=== PATIENT | female | born 1980 | race Caucasian/White ===

== ENCOUNTER 2018-09-12 20:20 | Emergency (ER) | payer SELFPAY ==
[~2018-09-12] VITALS: Ht 167.6 cm; Wt 49.9 kg
[2018-09-12 20:27] VITALS: BP 117/75
--- NOTE | 2018-09-12 20:31 | NUR ---
PT AMBULATED TO BED 2. PROVIDED WITH URINE CUP.
--- NOTE | 2018-09-12 20:40 | NUR ---
37 YO F BIB SELF PRESENTS TO ED C/O 12/25 RIGHT LOWER ABD PAIN ACCOMPANIED BY N/V SINCE 0100 THIS AM. PT STATES SHE WENT TO URGENT CARE AROUND 0900 AND AN US WAS PERFORMED. SHE WENT TO WORK AFTERWARDS AND THEY CALLED TO TELL HER TO GO TO ER FOR F/U FOR POSSIBLE APPENDICITIS. PT DENIES TAKING ANY MEDICATION FOR PAIN. -- PT IS CALM, COOPERATIVE, ANSWERS QUESTIONS APPROPRIATELY. -- SKIN PINK, WARM, DRY. BREATHING EVEN, UNLABORED. -- LAST BM: THIS MORNING. SOFT/BROWN. DENIES CONSTIPATION/DIARRHEA. BOWEL SOUNDS ACTIVE TO ALL QUADRANTS. ABD IS FLAT, SOFT, TENDER TO TOUCH. PAIN INCREASES WHILE PT IS SUPINE. PMH-- BOWEL RESECTION, 08/25/18, HYSTERECTOMY, 2016. RX-- DENIES.
[2018-09-12] MEDS ORDERED: MORPHINE SULFATE 4 MG/ML SYR IVP ONE ×3 (20:45→23:05)
[2018-09-12] MEDS ORDERED: diphenhydrAMINE 50 MG/ML VIAL IVP ONE ×2 (20:45→22:45)
[2018-09-12] MEDS ORDERED: ONDANSETRON 4 MG/2 ML VIAL IVP ONE (20:45)
[2018-09-12] MEDS ORDERED: NACL 0.9% 1,000 ML IV SCH (20:45)
--- NOTE | 2018-09-12 20:50 | NUR ---
DR. OCASIO EVALUATING AT BEDSIDE. PT STATES SHE IS ALLERGIC TO IV CONTRAST AND GETS A RASH TO HER CHEST. PT ADDS THAT SHE HAS BEEN PREMEDICATED WITH IVP BENADRYL BEFOREHAND AND THIS IS EFFECTIVE FOR MANAGING ALLERGIC REACTION. DR. OCASIO AWARE. ORDERS RECEIVED.
[2018-09-12 21:05] LABS: APPEARANCE,URINE CLEAR (CLEAR); BILIRUBIN,URINE NEGATIVE (NEGATIVE); BLOOD, URINE 1+ (NEGATIVE); COLOR,URINE YELLOW (YELLOW); LEUKOCYTE ESTERASE ,URINE TRACE (NEGATIVE); NITRITE, URINE NEGATIVE (NEGATIVE); UGLUCOSE NEGATIVE (NEGATIVE)
[2018-09-12 21:07] LABS: BASOPHILS % (AUTO) 0.5 % (0.0-2.0); EOSINOPHILS # (AUTO) 0.1 K/uL (0-0.4); HEMATOCRIT 31.7 % (36-48); HEMOGLOBIN 10.5 g/dL (12.0-16.0); LYMPHOCYTES # (AUTO) 0.9 K/uL (2.5-16.5); LYMPHOCYTES % (AUTO) 29.6 % (20.5-51.1); MEAN CORPUSCULAR HEMOGLOBIN 27 pg (27-31); MEAN CORPUSCULAR HGB CONC 33 g/dL (33-37); MEAN CORPUSCULAR VOLUME 82.6 fL (80-94); MONOCYTES # (AUTO) 0.2 K/uL (0.8-1.0); MONOCYTES % (AUTO) 7.1 % (1.7-9.3); NEUTROPHILS # (AUTO) 1.8 K/uL (1.8-7.7); NEUTROPHILS % (AUTO) 58.8 % (42.2-75.2); PLATELET COUNT (AUTO) 339 K/uL (140-450); RED BLOOD CELL COUNT(AUTO) 3.84 MIL/uL (4.20-5.40); RED CELL DISTRIBUTION WIDTH 21.6 % (11.6-13.7); WHITE BLOOD COUNT (AUTO) 3.1 K/uL (4.8-10.8)
[2018-09-12 21:24] LABS: ALBUMIN 3.7 g/dL (3.4-5.0); ANION GAP 13.1 (8-16); CARBON DIOXIDE 26.5 mmol/L (21-32); CREATININE 0.6 mg/dL (0.6-1.3); TOTAL BILIRUBIN 0.4 mg/dL (0.0-1.0)
[2018-09-12 21:24] LABS: WBC,URINE 0-5 /HPF (0-5)
[2018-09-12 21:26] LABS: POTASSIUM 2.6 mmol/L (3.5-5.1)
[2018-09-12] MEDS ORDERED: POTASSIUM CHLORIDE 10 MEQ TABER PO ONE (21:40)
--- NOTE | 2018-09-12 21:40 | NUR ---
PT RECEIVED 50 MG BENADRYL IVP FOR ALLERGIC REACTION TO IV CONTRAST. CT NOTIFIED.
--- NOTE | 2018-09-12 21:48 | NUR ---
PT TAKEN TO CT AT THIS TIME
--- NOTE | 2018-09-12 21:58 | NUR ---
PT RETURNED FROM CT
--- NOTE | 2018-09-12 22:10 | NUR ---
PT REPORTS FEELING MILDLY ITCHY BUT NO RASH NOTED.
--- NOTE | 2018-09-12 22:44 | NUR ---
CT RESULT: Impression: 1. Postsurgical changes from recent midline incision with fluid diffusely throughout the large and small bowel. There is mild thickening of the wall of the colon with slight adjacent fat stranding. This is likely outside sales representative of ileus with possible mild colitis. There is no evidence for a bowel obstruction or perforation. 2. The remainder the examination is unremarkable. Automatic exposure control was used as a dose lowering technique.
--- NOTE | 2018-09-12 22:50 | NUR ---
PT REPORTS SHE STILL FEELS ITCHY. DR. OCASIO NOTIFIED. RECEIVED ORDERS FOR 50 MG BENADRYL IVP.
--- NOTE | 2018-09-12 23:00 | NUR ---
PT HAS RECEIVED 8 MG MORPHINE IVP. REPORTS 10/[address] OCASIO NOTIFIED. NEW ORDERS RECEIVED FOR 4 MG MORPHINE IVP AND RX FOR NORCO. PT STATES SHE HAS RIDE HOME.
[2018-09-12 23:15] VITALS: BP 124/92
--- NOTE | 2018-09-12 23:15 | NUR ---
Patient discharged with v/s stable. Written and verbal after care instructions given and explained. Patient alert, oriented and verbalized understanding of instructions. Pt states pain is slowly starting to go down and reports that itching and N/V has gone away. Ambulatory with steady gait. All questions addressed prior to discharge. ID band removed. Patient advised to follow up with PMD. Rx of Prednisone, Zofran, and [place] given. Patient educated on indication of medication including possible reaction and side effects. Opportunity to ask questions provided and answered.
== END 2018-09-12 23:15 | disposition home or self-care (01) ==
LOC: MED 20:20
DX: R10.31 Right lower quadrant pain (principal); R50.9 Fever, unspecified; R11.2 Nausea with vomiting, unspecified; Z88.6 Allergy status to analgesic agent; Z90.710 Acquired absence of both cervix and uterus
CPT/HCPCS: 36415; 74177; 80053; 81001; 81025; 83690; 85025; 96365; 96375; 96376; 99284; J1200; J2270; J2405; J7030; Q9967

== ENCOUNTER 2018-09-13 10:36 | Emergency (ER) | payer MEDICAID ==
[~2018-09-13] VITALS: Ht 167.6 cm; Wt 35.9 kg
[2018-09-13 10:45] VITALS: BP 111/77
--- NOTE | 2018-09-13 10:51 | NUR ---
PATIENT PRESENTS TO ED WITH C/O RLQ PAIN, PAIN 9/10. PT SEEN HERE YESTERDAY FOR SAME. RX GIVEN, PT NOT ABLE TO FEED RESEARCH AIDE MEDS UNTIL THIS AFTERNOON. VSS; PATIENT POSITIONED FOR COMFORT; HOB ELEVATED; BEDRAILS UP X2; BED DOWN. ER MD MADE AWARE OF PT STATUS.
--- NOTE | 2018-09-13 10:58 | NUR ---
Patient being evaluated by physician at bedside.
[2018-09-13] MEDS ORDERED: NACL 0.9% 1,000 ML IV SCH ×2 (11:03→12:40)
[2018-09-13] MEDS ORDERED: ONDANSETRON 4 MG/2 ML VIAL IVP ONE (11:05)
[2018-09-13] MEDS ORDERED: MORPHINE SULFATE 4 MG/ML SYR IVP ONE (11:05)
[2018-09-13 11:53] LABS: BASOPHILS % (AUTO) 0.6 % (0.0-2.0); EOSINOPHILS # (AUTO) 0.3 K/uL (0-0.4); EOSINOPHILS % (AUTO) 9.9 % (0.0-4.0); HEMATOCRIT 29.2 % (36-48); HEMOGLOBIN 9.6 g/dL (12.0-16.0); LYMPHOCYTES # (AUTO) 0.8 K/uL (2.5-16.5); LYMPHOCYTES % (AUTO) 25.3 % (20.5-51.1); MEAN CORPUSCULAR HEMOGLOBIN 28 pg (27-31); MEAN CORPUSCULAR HGB CONC 33 g/dL (33-37); MEAN CORPUSCULAR VOLUME 83.5 fL (80-94); MONOCYTES # (AUTO) 0.3 K/uL (0.8-1.0); MONOCYTES % (AUTO) 9.1 % (1.7-9.3); NEUTROPHILS # (AUTO) 1.8 K/uL (1.8-7.7); NEUTROPHILS % (AUTO) 55.1 % (42.2-75.2); PLATELET COUNT (AUTO) 277 K/uL (140-450); RED BLOOD CELL COUNT(AUTO) 3.49 MIL/uL (4.20-5.40); RED CELL DISTRIBUTION WIDTH 21.5 % (11.6-13.7); WHITE BLOOD COUNT (AUTO) 3.2 K/uL (4.8-10.8)
[2018-09-13 11:53] LABS: APPEARANCE,URINE CLEAR (CLEAR); BILIRUBIN,URINE NEGATIVE (NEGATIVE); BLOOD, URINE TRACE-L (NEGATIVE); COLOR,URINE YELLOW (YELLOW); LEUKOCYTE ESTERASE ,URINE TRACE (NEGATIVE); NITRITE, URINE NEGATIVE (NEGATIVE); UGLUCOSE NEGATIVE (NEGATIVE)
[2018-09-13 12:00] LABS: RBC,URINE 0-5 /HPF (0-5)
[2018-09-13 12:07] LABS: ALBUMIN 3.4 g/dL (3.4-5.0); ANION GAP 13.2 (8-16); CARBON DIOXIDE 27.3 mmol/L (21-32); CREATININE 0.6 mg/dL (0.6-1.3); TOTAL BILIRUBIN 0.4 mg/dL (0.0-1.0)
[2018-09-13] MEDS ORDERED: diphenhydrAMINE 50 MG/ML VIAL IVP ONE (12:10)
[2018-09-13 12:13] LABS: POTASSIUM 2.5 mmol/L (3.5-5.1)
--- NOTE | 2018-09-13 12:13 | NUR ---
CRITICAL LAB REPORT RECEIVED FROM [employer] REPRODUCTIVE ENDOCRINOLOGIST. POTASSIUM 2.5; LACTIC ACID: 3.1. DR PETE NOTIFIED.
--- NOTE | 2018-09-13 12:14 | NUR ---
REDNESS AND HIVE NOTED TO LEFT HAND, BENENDYL GIVEN. PT DENIES PAIN OR ITCHINESS.
[2018-09-13] MEDS ORDERED: NACL 0.9% 1,000 ML IV ONE (12:15)
[2018-09-13] MEDS ORDERED: KCL 20 MEQ/WATER INJ PREMIX 100 ML IV ONE (12:15)
[2018-09-13] MEDS ORDERED: MAG SULF 2000 MG/WATER PREMIX 50 ML IV ONE (12:15)
[2018-09-13] MEDS ORDERED: MORPHINE SULFATE 2 MG/ML SYR IVP PRN (12:40)
[2018-09-13] MEDS ORDERED: HYDROcodone/APAP 5/325 MG 1 TAB TAB PO PRN (12:40)
[2018-09-13] MEDS ORDERED: ZOLPIDEM 5 MG TAB PO PRN (12:40)
[2018-09-13] MEDS ORDERED: DOCUSATE SODIUM 100 MG GELCAP PO PRN (12:40)
[2018-09-13] MEDS ORDERED: ACETAMINOPHEN 325 MG TAB PO PRN (12:40)
[2018-09-13] MEDS ORDERED: ONDANSETRON 4 MG/2 ML VIAL IM/IVP PRN (12:40)
[2018-09-13] MEDS ORDERED: LORazepam 2 MG/ML VIAL IM/IVP PRN (12:40)
[2018-09-13] MEDS ORDERED: diphenhydrAMINE 50 MG/ML VIAL IM ONE (12:50)
[2018-09-13] MEDS ORDERED: POTASSIUM CHLORIDE 20% 40 MEQ/15 ML UDC PO SCH (13:30)
[2018-09-13 13:36] VITALS: BP 101/62
--- NOTE | 2018-09-13 13:36 | NUR ---
Patient does not wish to proceed with medical care recommended by dr flores. Patient given information related to possible complications, up to and including , which could occur as a result of leaving hospital at this time. Patient verbalizes understanding of risks involved leaving against medical advice. Patient has signed AMA form.
[2018-09-13 14:07] LABS: BARBITURATE, URINE NEG. ng/ml (NEG <=200); BENZODIAZEPINE, URINE NEG. ng/mL (NEG <=200); CANNABINOID, URINE NEG. ng/mL (NEG <=50); COCAINE, URINE NEG. ng/mL (NEG <=300); OPIATE, URINE POS. ng/mL (NEG <=2000); PHENCYCLIDINE SCREEN,URINE NEG. ng/mL (NEG <=25)
[2018-09-13] MEDS ORDERED: PIPER/TAZO 3.375GM/D5W PREMIX 50 ML IV SCH (21:00)
[2018-09-14] MEDS ORDERED: LACTOBACILLUS RHAMNOSUS GG 1 EACH CAP PO SCH (09:00)
== END 2018-09-13 13:36 | disposition left against medical advice (07) ==
LOC: MED 10:36 → UNDOADMIN 12:40 → MTU 12:40 → MED 13:36
DX: K52.9 Noninfective gastroenteritis and colitis, unspecified (principal); E87.6 Hypokalemia; D64.9 Anemia, unspecified; K56.7 Ileus, unspecified; D72.819 Decreased white blood cell count, unspecified; Z98.890 Other specified postprocedural states; Z90.710 Acquired absence of both cervix and uterus; Z88.6 Allergy status to analgesic agent; Z88.8 Allergy status to other drugs, medicaments and biological substances
CPT/HCPCS: 36415; 71045; 80053; 80305; 81001; 81025; 82150; 83605; 83690; 85025; 87040; 87086; 93005; 96361; 96365; 96375; 99291; J1200; J2270; J2405; J3475; J3480; J7030; Q0092; 99284; J2543

== ENCOUNTER 2018-09-23 20:16 | Inpatient (IN) | payer MEDICAID ==
[~2018-09-23] VITALS: Ht 167.6 cm; Wt 34.9 kg
[2018-09-23 20:17] VITALS: BP 101/69
--- NOTE | 2018-09-23 20:27 | NUR ---
PT AMBULATED TO BED #1
--- NOTE | 2018-09-23 20:46 | NUR ---
PT TO ED WITH C/O GENERALIZED ABD PAIN X 2 DAYS WITH N/V/C. ABD IS FLAT, TENDER WITH HYPOACTIVE BOWEL SOUNDS X 4 QUADRANTS. PT REPORTS HX OF SMALL BOWEL OBSTRUCTIONS, AND REPORTS SMILIAR S/S PRIOR EPISODES. PT PLACED INTO BED, PENDING MD GOMES.
[2018-09-23] MEDS ORDERED: NACL 0.9% 1,000 ML IV ONE (20:55)
[2018-09-23] MEDS ORDERED: METOCLOPRAMIDE 10 MG/2 ML INJ VIAL IVP ONE (20:55)
[2018-09-23] MEDS ORDERED: MORPHINE SULFATE 4 MG/ML SYR IVP ONE (20:55)
[2018-09-23 21:17] LABS: BASOPHILS % (AUTO) 0.4 % (0.0-2.0); EOSINOPHILS # (AUTO) 0.1 K/uL (0-0.4); EOSINOPHILS % (AUTO) 4.7 % (0.0-4.0); HEMATOCRIT 34.4 % (36-48); HEMOGLOBIN 11.2 g/dL (12.0-16.0); LYMPHOCYTES # (AUTO) 0.9 K/uL (2.5-16.5); LYMPHOCYTES % (AUTO) 36.4 % (20.5-51.1); MEAN CORPUSCULAR HEMOGLOBIN 28 pg (27-31); MEAN CORPUSCULAR HGB CONC 33 g/dL (33-37); MEAN CORPUSCULAR VOLUME 84.9 fL (80-94); MONOCYTES # (AUTO) 0.3 K/uL (0.8-1.0); MONOCYTES % (AUTO) 13.3 % (1.7-9.3); NEUTROPHILS # (AUTO) 1.1 K/uL (1.8-7.7); NEUTROPHILS % (AUTO) 45.2 % (42.2-75.2); PLATELET COUNT (AUTO) 350 K/uL (140-450); RED BLOOD CELL COUNT(AUTO) 4.05 MIL/uL (4.20-5.40); RED CELL DISTRIBUTION WIDTH 20.8 % (11.6-13.7); WHITE BLOOD COUNT (AUTO) 2.4 K/uL (4.8-10.8)
[2018-09-23 21:19] LABS: APPEARANCE,URINE HAZY (CLEAR); BILIRUBIN,URINE NEGATIVE (NEGATIVE); BLOOD, URINE TRACE-I (NEGATIVE); COLOR,URINE YELLOW (YELLOW); LEUKOCYTE ESTERASE ,URINE 1+ (NEGATIVE); NITRITE, URINE NEGATIVE (NEGATIVE); UGLUCOSE NEGATIVE (NEGATIVE)
[2018-09-23 21:21] LABS: RBC,URINE 0-5 /HPF (0-5); WBC,URINE 20-60 /HPF (0-5)
--- NOTE | 2018-09-23 21:31 | NUR ---
PT DECLINED JAMEEL METZ MD AWARE.
[2018-09-23 21:34] LABS: ALBUMIN 3.6 g/dL (3.4-5.0); ANION GAP 20.2 (8-16); CARBON DIOXIDE 17.2 mmol/L (21-32); CREATININE 0.6 mg/dL (0.6-1.3); TOTAL BILIRUBIN 0.4 mg/dL (0.0-1.0)
[2018-09-23 21:37] LABS: POTASSIUM 2.4 mmol/L (3.5-5.1)
[2018-09-23] MEDS ORDERED: POTASSIUM CHLORIDE 10 MEQ TABER PO ONE (21:50)
[2018-09-23] MEDS ORDERED: diphenhydrAMINE 50 MG/ML VIAL IVP ONE (22:15)
[2018-09-23] MEDS ORDERED: NACL 0.9% 1,000 ML IV SCH (22:16)
[2018-09-23] MEDS ORDERED: ACETAMINOPHEN 325 MG TAB PO PRN (22:20)
[2018-09-23] MEDS ORDERED: HYDROcodone/APAP 7.5/325 MG 1 TAB PO PRN (22:20)
[2018-09-23] MEDS ORDERED: MORPHINE SULFATE 2 MG/ML SYR IVP PRN (22:20)
[2018-09-23] MEDS ORDERED: DOCUSATE SODIUM 100 MG GELCAP PO PRN (22:20)
[2018-09-23] MEDS ORDERED: fentaNYL 0.05 MG/ML VIAL IVP ONE (22:30)
[2018-09-23] MEDS ORDERED: METOCLOPRAMIDE 10 MG/2 ML INJ VIAL IVP PRN (22:40)
--- NOTE | 2018-09-23 22:50 | NUR ---
RECEIVED PT FROM ER NURSE. PT AWAKE, ALERT AND ORIENTED X 4. ABLE TO VERBALIZE NEEDS. PT ABLE TO AMBULATE FROM BED TO GURNEY, STEADY GAIT. RIGHT A/C 20 G INTACT. PT ORIENTED TO ROOM, SAFETY MEASURES IN PLACE. CALL LIGHT WITHIN REACH.
--- NOTE | 2018-09-23 22:50 | NUR ---
Patient will be admitted to care of DR PALMER. Admited to TELE. Will go to room 120-B. Belongings list completed. Report to BRANTPADMINI.
[2018-09-23] MEDS ORDERED: ONDANSETRON 4 MG/2 ML VIAL IVP PRN (23:05)
[2018-09-23] MEDS ORDERED: POTASSIUM CHLORIDE 40 MEQ, LIDOCAINE MPF 1% - 5 mL VIAL 25 MG in NACL 0.9% 250 ML IV ONE (23:05)
[2018-09-23] MEDS ORDERED: DEXT 5% /NACL 0.9% 1,000 ML IV SCH (23:05)
[2018-09-23 23:18] LABS: FREE T4 (FREE THYROXINE) 0.65 ng/dL (0.76-1.46); MAGNESIUM 1.1 mg/dL (1.8-2.4); PHOSPHORUS 3.4 mg/dL (2.5-4.9)
[2018-09-23 23:19] LABS: THYROID STIMULATING HORMONE 0.75 uIU/mL (0.34-3.74)
[2018-09-23 23:30] LABS: BARBITURATE, URINE NEG. ng/ml (NEG <=200); BENZODIAZEPINE, URINE NEG. ng/mL (NEG <=200); CANNABINOID, URINE NEG. ng/mL (NEG <=50); COCAINE, URINE NEG. ng/mL (NEG <=300); OPIATE, URINE NEG. ng/mL (NEG <=2000); PHENCYCLIDINE SCREEN,URINE NEG. ng/mL (NEG <=25)
[2018-09-23] MEDS ORDERED: NACL 0.9% 500 ML IV ONE (23:30)
[2018-09-23] MEDS: diphenhydrAMINE 50 MG/ML VIAL IVP PRN (23:37)
[2018-09-24] VITALS: BP 113/79
[2018-09-24] MEDS ORDERED: MAG SULF 2000 MG/WATER PREMIX 100 ML IV ONE
[2018-09-24] MEDS ORDERED: MORPHINE SULFATE 2 MG/ML SYR IVP PRN ×2 (00:10→08:10)
[2018-09-24] MEDS ORDERED: HYDROmorphone 1 MG/ML AMP IVP PRN (00:10)
--- NOTE | 2018-09-24 00:11 | NUR ---
PT HAD SMALL EMESIS, ZOFRAN GIVEN FOR NAUSEA.
[2018-09-24] MEDS: LORazepam 2 MG/ML VIAL IVP PRN ×3 (01:11→16:50)
--- NOTE | 2018-09-24 01:13 | NUR ---
DILAUDID GIVEN FOR BREAK THROUGH PAIN.
[2018-09-24] MEDS: KCL 20 MEQ/WATER INJ PREMIX 100 ML IV SCH ×2 (03:14→06:53)
[2018-09-24 04:00] VITALS: BP 92/59
--- NOTE | 2018-09-24 04:01 | NUR ---
PAIN MEDICATION GIVEN PER ORDERS.
--- NOTE | 2018-09-24 05:05 | NUR ---
ROUNDED ON PT. PT SLEEPING, NO VISIBLE SIGNS OF DISTRESS. BREATHING EQUAL AND UNLABORED. SAFETY MEASURES IN PLACE. CALL LIGHT WITHIN REACH. WILL CONTINUE TO MONITOR.
[2018-09-24] MEDS: PIPER/TAZO 3.375GM/D5W PREMIX 50 ML IV SCH ×2 (05:51→13:32)
[2018-09-24] MEDS ORDERED: PIPERACILLIN/TAZOBACTAM 3.375 GM VIAL IV ONE (05:54)
[2018-09-24] MEDS ORDERED: KCL 20 MEQ/WATER INJ PREMIX 100 ML IV ONE (06:53)
--- NOTE | 2018-09-24 07:05 | NUR ---
ENDORSED TO AM NURSE. PT ON STABLE CONDITION AT THIS TIME.
--- NOTE | 2018-09-24 07:06 | NUR ---
RECEIVED PATIENT FROM SOCIAL WORK[employer]OL NURSE AT BEDSIDE FOR CONTINUITY OF CARE. PT AWAKE, ALERT AND ORIENTED X 4. ABLE TO VERBALIZE NEEDS. PT ABLE TO AMBULATE ON STEADY GAIT. IV RIGHT A/C 20 G INTACT INFUSING IVF AND K RIDER. RESPIRATIONS EVEN AND UNLABORED ON ROOM AIR. UPDATED BOARD. UPDATED PATIENT WITH PLAN OF CARE, SHE VERBALIZED UNDERSTANDING. PATIENT RT QUADRANT ABD PAIN 10/10. WILL ASSESS AND MEDICATE. WILL CONTINUE TO MONITOR PATIENT.
[2018-09-24 07:33] LABS: ANION GAP 12.9 (8-16); CARBON DIOXIDE 23.8 mmol/L (21-32); CREATININE 0.6 mg/dL (0.6-1.3)
[2018-09-24 07:38] LABS: CHOL/HDL RATIO 1.5 (1-4.5)
[2018-09-24 07:39] LABS: BASOPHILS % (AUTO) 0.4 % (0.0-2.0); EOSINOPHILS # (AUTO) 0.2 K/uL (0-0.4); EOSINOPHILS % (AUTO) 7.2 % (0.0-4.0); HEMATOCRIT 25.9 % (36-48); HEMOGLOBIN 8.7 g/dL (12.0-16.0); LYMPHOCYTES # (AUTO) 0.8 K/uL (2.5-16.5); LYMPHOCYTES % (AUTO) 22.9 % (20.5-51.1); MEAN CORPUSCULAR HEMOGLOBIN 28 pg (27-31); MEAN CORPUSCULAR HGB CONC 34 g/dL (33-37); MEAN CORPUSCULAR VOLUME 82.7 fL (80-94); MONOCYTES # (AUTO) 0.4 K/uL (0.8-1.0); NEUTROPHILS % (AUTO) 58.5 % (42.2-75.2); PLATELET COUNT (AUTO) 249 K/uL (140-450); RED BLOOD CELL COUNT(AUTO) 3.14 MIL/uL (4.20-5.40); RED CELL DISTRIBUTION WIDTH 20.9 % (11.6-13.7); WHITE BLOOD COUNT (AUTO) 3.4 K/uL (4.8-10.8)
[2018-09-24 08:00] VITALS: BP 98/66
--- NOTE | 2018-09-24 08:04 | NUR ---
PT REFUSED ABG AND RN SHEILA NOTIFIED
--- NOTE | 2018-09-24 08:12 | NUR ---
DOCTORS DOING THEIR ROUNDS. WILL WAIT FOR THEIR NEW ORDERS.
[2018-09-24 08:17] LABS: POTASSIUM 2.7 mmol/L (3.5-5.1)
[2018-09-24] MEDS: HYDROmorphone 1 MG/ML AMP IVP PRN ×2 (08:20→15:08)
[2018-09-24] MEDS ORDERED: POTASSIUM CHLORIDE 10 MEQ TABER PO SCH ×2 (09:00→20:00)
[2018-09-24] MEDS ORDERED: LACTOBACILLUS RHAMNOSUS GG 1 EACH CAP PO SCH (09:00)
--- NOTE | 2018-09-24 09:45 | NUR ---
SPOKE TO SHARLENE, NUCLEAR MED TECH, ABOUT HIDA SCAN FOR PATIENT. PATIENT LAST MEDICATED WITH OPIATE AT 0820. SHARLENE STATED HIDA SCAN CANNOT BE DONE FOR ANOTHER 6 HOURS. PATIENT CURRENTLY SLEEPING. WILL CONTINUE TO MONITOR PATIENT.
[2018-09-24] MEDS ORDERED: POTASSIUM CHLORIDE 40 MEQ, LIDOCAINE MPF 1% - 5 mL VIAL 25 MG in NACL 0.9% 250 ML IV SCH (10:00)
[2018-09-24] MEDS: diphenhydrAMINE 50 MG/ML VIAL IVP PRN (10:15)
--- NOTE | 2018-09-24 10:15 | NUR ---
PATIENT C/O OF ITCHINESS, REQUESTED FOR PRN BENADRYL. PRN BENADRYL GIVEN. INFORMED PATIENT ABOUT HIDA SCAN, PATIENT COOPERATIVE AND AGREEABLE TO SCAN AT THIS TIME. ALL NEEDS MET AT THIS TIME WITH NO COMPLAINTS. WILL CONTINUE TO MONITOR PATIENT.
--- NOTE | 2018-09-24 10:45 | NUR ---
DR HARRISON HERE TO SEE PATIENT. INFORMED PATIENT ABOUT EGD WITH DR. HARRISON TODAY. INFORMED PATIENT ABOUT PROCEDURE, SHE VERBALIZED UNDERSTANDING. CONSENT OBTAINED. WILL CONTINUE TO MONITOR PATIENT.
[2018-09-24] MEDS ORDERED: POTASSIUM CHL 40 MEQ/ D5-1/2NS 1,000 ML IV SCH (11:05)
--- NOTE | 2018-09-24 11:15 | NUR ---
PATIENT REQUESTED BENADRYL BECAUSE ITCHINESS HAS NOT STOPPED. BENADRYL MEDICATED AT 1015. SPOKE [address] DR. CUNNINGHAM. NO NEW ORDERS AT THIS TIME.
--- NOTE | 2018-09-24 11:30 | NUR ---
DR. CUNNINGHAM IN TO SPEAK TO PATIENT ABOUT PAIN MANAGEMENT AND BENADRYL. PATIENT GETTING AGITATED AND GETTING UPSET, NO NEW ORDERS AT THIS TIME.
[2018-09-24 11:45] VITALS: BP 105/70
[2018-09-24] MEDS ORDERED: HYDROCORTISONE 0.5% CRM 30 GM TUBE TP PRN (11:55)
--- NOTE | 2018-09-24 12:00 | NUR ---
OR NURSE HERE TO TAKE PATIENT TO EGD WITH DR. HARRISON. PATIENT CRYING, STATING THAT HER ITCHINESS AND PAIN IS NOT BEING ADDRESSED. DR. CUNNINGHAM AT BEDSIDE. PATIENT STATING SHE WANTS TO GO AMA. EXPLAINED TO HER POSSIBLE CONSEQUENCES OF HER GOING AMA. PATIENT MAD STATING "NO ONE TOLD ME ANYTHING". EXPLAINED TO PATIENT ABOUT EGD AGAIN. INFORMED DISPATCH CLERK JOWIE. PATIENT WANTED TO SPEAK TO DIRECTOR. WENT TO INFORM LAI, DIRECTOR OF [facility] AT BEDSIDE.
--- NOTE | 2018-09-24 12:15 | NUR ---
LAI, DIRECTOR OF [facility], SPOKE TO PATIENT. PATIENT AGREEABLE TO EGD. CALLED OR. THEY STATED THAT DR. HARRISON HAD LEFT SINCE PATIENT STATED SHE WAS GOING AMA. CALLED DR. HARRISON ON HIS CELL PHONE, HE STATED THAT HE WAS STILL HERE AND TELL OR TO TAKE COME AND TAKE PATIENT. CALLED SURGERY AGAIN, FORWARDED DR. HARRISON'S MESSAGE, THEY STATED SOMEONE WILL COME AND TAKE PATIENT.
--- NOTE | 2018-09-24 12:20 | NUR ---
PATIENT WHEELED OFF FLOOR VIA BED TO OR TO DO EGD WITH DR. HARRISON. WILL WAIT FOR PATIENT TO COME BACK.
[2018-09-24] MEDS ORDERED: diphenhydrAMINE 50 MG/ML VIAL IVP PRN (12:40)
[2018-09-24] MEDS ORDERED: diphenhydrAMINE 50 MG/ML VIAL ONE (12:42)
[2018-09-24] MEDS: fentaNYL 0.05 MG/ML VIAL ONE ×2 (12:45→12:53)
[2018-09-24] MEDS: MIDAZOLAM 2 MG/2 ML VIAL ONE ×4 (12:45→12:53)
[2018-09-24 13:12] VITALS: BP 99/64
--- NOTE | 2018-09-24 13:52 | NUR ---
PATIENT C/O ITCHINESS ON ARMS AND UPPER BODY, REQUESTED FOR BENADRYL IV PRN. BENADRYL PRN GIVEN. PATIENT TOLERATING IT. WILL CONTINUE TO MONITOR PATIENT.
[2018-09-24] MEDS ORDERED: SODIUM FERRIC GLUCONATE 125 MG in NACL 0.9% 100 ML IV SCH ×2 (14:00→17:00)
--- NOTE | 2018-09-24 16:26 | NUR ---
PATIENT CAME BACK FROM HIDA SCAN. PATIENT PUT BACK ON TELE MONITOR. PATIENT COOPERATIVE. WILL CONTINUE TO MONITOR PATIENT.
[2018-09-24 16:30] VITALS: BP 110/73
--- NOTE | 2018-09-24 16:50 | NUR ---
PATIENT REQUESTING FOR ATIVAN PRN FOR ANXIETY. ATIVAN PRN GIVEN. PATIENT TOLERATING IT. PATIENT REFUSED BLOOD DRAW BECAUSE SHE IS A HARD STICK. PATIENT DEMANDING TO GO AMA. WILL REPORT TO CARDING DOUBLER AND DR. CUNNINGHAM.
--- NOTE | 2018-09-24 17:00 | NUR ---
CALLED DR. CUNNINGHAM ABOUT PATIENT DEMANDING TO GO AMA. DR. GARZA IN TO SPEAK TO THE PATIENT.
--- NOTE | 2018-09-24 17:05 | NUR ---
PATIENT AGREEABLE TO STAYING FOR TREATMENT. NO COMPLAINTS AT THIS TIME. EXPLAINED TO HER ABOUT ATIVAN AND MORPHINE AND RESPIRATORY DEPRESSION. PT AGREED TO WAIT FOR MORPHINE IVP. PATIENT NOW RESTING IN BED WITH E YES CLOSED, WILL CONTINUE TO MONITOR PATIENT.
[2018-09-24 17:49] LABS: ANION GAP 12.6 (8-16); CARBON DIOXIDE 25.3 mmol/L (21-32); CREATININE 0.7 mg/dL (0.6-1.3)
[2018-09-24 18:00] LABS: POTASSIUM 2.9 mmol/L (3.5-5.1)
--- NOTE | 2018-09-24 18:53 | NUR ---
PATIENT C/O PAIN AT IV SITE. IVF REMOVED FOR THE MOMENT. PATIENT RESTING BUT ANXIOUS. WILL CONTINUE TO MONITOR PATIENT AND ENDORSE TO LEARNING DISABILITIES RESOURCE TEACHER RN.
[2018-09-24] MEDS ORDERED: POTASSIUM CHLORIDE 40 MEQ, LIDOCAINE MPF 1% - 5 mL VIAL 25 MG in NACL 0.9% 250 ML IV ONE (19:05)
--- NOTE | 2018-09-24 19:20 | NUR ---
REPORT GIVEN TO PBX SUPERVISOR RN AT BEDSIDE FOR CONTINUITY OF CARE. DR. PULIDO IN TO SEE THE PATIENT.
--- NOTE | 2018-09-24 19:20 | NUR ---
REPORT RECEIVED FROM AM NURSE. PT IN BED AWAKE, ALERT AND ORIENTED. ABLE TO VERBALIZE NEEDS. PT LEFT AC 20 G INTACT. SAFETY MEASURES IN PLACE. CALL LIGHT WITHIN REACH.
[2018-09-24] MEDS ORDERED: KCL 20 MEQ/WATER INJ PREMIX 200 ML IV ONE (20:00)
--- NOTE | 2018-09-24 20:23 | NUR ---
PT STATED THAT SHE WOULD LIKE TO LEAVE AMA. RESIDENT MD CAME IN TO SPEAK WITH PT. PT DECIDED TO LEAVE AMA.
--- NOTE | 2018-09-24 20:55 | NUR ---
PT IV D/C, CANULA INTACT. TELE MONITOR TAKEN OFF. PT TAKEN OUT TO THE FRONT ENTRANCE VIA WHEELCHAIR. PT GAIT STEADY. PT IN STABLE CONDITION AT THIS TIME.
[2018-09-28 06:59] LABS: FOLIC ACID 13.6 ng/mL (>3.0)
== END 2018-09-24 19:55 | disposition left against medical advice (07) | DRG 720 ==
LOC: MED 20:16 → MTU 22:16
PROVIDERS: ADMIT General Practice; ATTEND General Practice
PROC: 0DC68ZZ Extirpation of Matter from Stomach, Via Natural or Artificial Opening Endoscopic (ICD-10-PCS; principal; 2018-09-24 12:20)
DX: A41.9 Sepsis, unspecified organism (principal); E43 Unspecified severe protein-calorie malnutrition; E87.0 Hyperosmolality and hypernatremia; T18.2XXA Foreign body in stomach, initial encounter; E87.2 Acidosis; E83.42 Hypomagnesemia; K31.84 Gastroparesis; R65.20 Severe sepsis without septic shock; E87.6 Hypokalemia; K52.9 Noninfective gastroenteritis and colitis, unspecified; X58.XXXA Exposure to other specified factors, initial encounter; N39.0 Urinary tract infection, site not specified; Z53.21 Procedure and treatment not carried out due to patient leaving prior to being seen by health care provider; D63.8 Anemia in other chronic diseases classified elsewhere; D64.9 Anemia, unspecified; Z68.1 Body mass index [BMI] 19.9 or less, adult; Z90.710 Acquired absence of both cervix and uterus; Z90.49 Acquired absence of other specified parts of digestive tract; Z88.8 Allergy status to other drugs, medicaments and biological substances; Z88.6 Allergy status to analgesic agent; Z91.041 Radiographic dye allergy status; Z79.899 Other long term (current) drug therapy; Y93.89 Activity, other specified; Y92.89 Other specified places as the place of occurrence of the external cause; Y99.8 Other external cause status; K80.20 Calculus of gallbladder without cholecystitis without obstruction; D72.819 Decreased white blood cell count, unspecified
CPT/HCPCS: 36415; 71045; 74022; 76705; 78445; 80048; 80053; 80305; 81001; 81025; 82140; 82272; 82607; 82728; 82746; 83036; 83540; 83605; 83690; 83735; 83880; 84100; 84439; 84443; 84702; 85025; 85045; 85610; 85730; 87040; 87045; 87070; 87081; 87086; 89055; 93005; 96374; 96375; 99285; J1170; J1200; J2001; J2060; J2250; J2270; J2405; J2543; J2765; J2916; J3010; J3475; J3480; J7030; J7042; J7060; Q0092

== ENCOUNTER 2018-09-25 15:46 | Emergency (ER) | payer MEDICAID ==
[~2018-09-25] VITALS: Ht 167.6 cm; Wt 34.9 kg
[2018-09-25 16:03] VITALS: BP 108/83
--- NOTE | 2018-09-25 16:11 | NUR ---
VSS. WAIT IN LOBBY
--- NOTE | 2018-09-25 16:29 | NUR ---
PATIENT AMBULAED TO BED 12.
--- NOTE | 2018-09-25 17:31 | NUR ---
during MD's evaluation pt became uncooperative and ambulated out of er with steady gait.
== END 2018-09-25 17:32 | disposition left against medical advice (07) ==
LOC: MED 15:46
DX: G89.29 Other chronic pain (principal); Z76.5 Malingerer [conscious simulation]; R10.84 Generalized abdominal pain; R11.2 Nausea with vomiting, unspecified; R19.7 Diarrhea, unspecified; Z88.6 Allergy status to analgesic agent; Z88.8 Allergy status to other drugs, medicaments and biological substances; Z91.041 Radiographic dye allergy status; Z98.890 Other specified postprocedural states
CPT/HCPCS: 99281